=== PATIENT | male | born 1945 | race Caucasian/White ===

== ENCOUNTER 2016-09-20 15:43 | Emergency (ER) | payer OTHER ==
[~2016-09-20] VITALS: Ht 175.2 cm; Wt 99.8 kg
[~2016-09-20 15:43] MED LIST: BACTROBAN OINT22 GM PO; MIRALAX POWDER17 G1 PO; VICODIN 500 MG-1 TAB PO
[2016-09-20] MEDS ORDERED: VITAMIN D31000 I1 PO (15:53)
[2016-09-20] MEDS ORDERED: METFORMIN1000 MG PO (15:53)
[2016-09-20] MEDS ORDERED: TRILEPTAL150 MG PO (15:53)
[2016-09-20] MEDS ORDERED: LIPITOR40 MG PO (15:54)
[2016-09-20] MEDS ORDERED: GLUCOSE4 GM PO (15:55)
[2016-09-20] MEDS ORDERED: BUSPIRONE10 MG PO (15:56)
[2016-09-20] MEDS ORDERED: SILVADENE1% T (15:56)
[2016-09-20] MEDS ORDERED: ASPIRIN81 M1 PO (15:56)
== END 2016-09-20 17:28 | disposition home or self-care (01) ==
LOC: ED 15:43
DX: S41.111A Laceration without foreign body of right upper arm, initial encounter (principal); S81.011A Laceration without foreign body, right knee, initial encounter; S00.531A Contusion of lip, initial encounter; S00.31XA Abrasion of nose, initial encounter; S00.81XA Abrasion of other part of head, initial encounter; Z79.899 Other long term (current) drug therapy; Z79.82 Long term (current) use of aspirin; Z88.0 Allergy status to penicillin; Z88.8 Allergy status to other drugs, medicaments and biological substances; W18.09XA Striking against other object with subsequent fall, initial encounter; Y93.89 Activity, other specified; Y92.89 Other specified places as the place of occurrence of the external cause; Y99.9 Unspecified external cause status